=== PATIENT | male | born 1960 | race Two or more races ===

== ENCOUNTER 2025-02-03 23:07 | Inpatient (IN) | payer OTHER ==
[~2025-02-03] VITALS: Ht 175.3 cm; Wt 86.2 kg
[2025-02-03] MEDS ORDERED: ATORVASTATIN CA10 MG PO (23:30)
[2025-02-03] MEDS ORDERED: AMLODIPINE-OLM1 EAC2 PO (23:30)
--- NOTE | 2025-02-03 23:35 | NUR ---
PTE ALERTA Y ORIENTAD0 X3. PTE REFIERE QUE INGIRIO CAMARONES ESTA NOCHE Y A PRESENTADO VARIAS DIARREAS Y VOMITOS.
[2025-02-04] MEDS ORDERED: PROMETHAZINE HCL 50 MG/ML AMPUL IM STA (00:16)
[2025-02-04] MEDS ORDERED: FAMOTIDINE/PF 20 MG/2 ML VIAL IV PUSH STA (00:17)
[2025-02-04] MEDS ORDERED: LACTOBACILLUS ACIDOPHILUS 1 CAP CAP PO STA (00:17)
[2025-02-04] MEDS ORDERED: 0.9 % SODIUM CHLORIDE 1,000 ML IV ONE (00:30)
[2025-02-04] MEDS ORDERED: FAMOTIDINE/PF 20 MG/2 ML VIAL ONE ×2 (02:15→14:00)
[2025-02-04] MEDS ORDERED: PROMETHAZINE HCL 50 MG/ML AMPUL IM ONE (02:15)
[2025-02-04] MEDS ORDERED: LACTOBACILLUS ACIDOPHILUS 1 CAP CAP PO ONE (02:15)
[2025-02-04 02:25] LABS: BASO % 0.3 % (0.1-1.2); EOS # 0.00 (0.04-0.54); EOS % 0.0 % (0.7-7.0); LYMPH # 0.54 (1.18-3.74); LYMPH % 2.8 % (19.3-53.1); MEAN PLATELET VOLUME 9.10 fl (9.4-12.4); MONO # 1.37 (0.24-0.82); MONO % 7.1 % (4.7-12.5); NEUT # 17.27 (1.56-6.13); NEUT % 89.2 % (34.0-71.1); RED CELL DISTRIBUTION WIDTH 11.8 % (11.6-14.4)
--- NOTE | 2025-02-04 02:34 | NUR ---
SE ORIENTA PTE SOBRE TRATATMIENTO MEIDCO Y SE EJECUTA EN MALDONADO TOTALIDAD
[2025-02-04 02:42] LABS: URINE APPEARANCE Clear; URINE BILIRRUBIN Negative (NEGATIVE); URINE BLOOD Moderate; URINE COLOR Yellow; URINE GLUCOSE Negative (NEGATIVE); URINE KETONE Trace (NEGATIVE); URINE LEUKOCYTE Large; URINE NITRATE Negative; URINE PROTEIN Trace (NEGATIVE); URINE UROBILINOGEN 1.0 E.U./dl
[2025-02-04 02:45] LABS: URINE BACTERIA 2098.8 uL (0.0-1933); URINE RBC 124.9 uL (0.0-20.8); URINE WBC 1720.3 uL (0.0-23.2)
[2025-02-04 02:49] LABS: URINE CAST 0.14 uL (0.0-1.40); URINE EPITHELIAL CELLS 0.7 uL (0.0-38.8)
[2025-02-04 02:50] LABS: ALT/SGPT 29.0 U/L (12-78); AST/SGOT 15.0 U/L (15-37); BILIRUBIN TOTAL 1.52 mg/dL (0.3-1.2); BUN CREA RATIO 15.0 (7.0-25.0); CREATININE SERUM 1.24 mg/dL (0.70-1.30); GFR 58.33; GLOBULINA 2.7 G/DL (2.4-3.5); GLUCOSE FASTING 122.0 mg/dL (65-100); OSMOLALITY SERUM 279.0 MOSM/KG (275-295)
[2025-02-04] MEDS ORDERED: CIPROFLOXACIN IN 5 % DEXTROSE 400 MG/200 ML PIGGYBAG IV STA (04:17)
[2025-02-04] MEDS ORDERED: CIPROFLOXACIN IN 5 % DEXTROSE 400 MG/200 ML PIGGYBAG IV ONE (05:07)
[2025-02-04] MEDS ORDERED: FAMOTIDINE/PF 20 MG in 0.9 % SODIUM CHLORIDE 100 ML IV SCH (11:14)
[2025-02-04] MEDS ORDERED: MORPHINE SULFATE 2 MG/ML SYRINGE IV PRN (11:15)
[2025-02-04] MEDS ORDERED: ONDANSETRON HCL 4 MG in 0.9 % SODIUM CHLORIDE 50 ML IV PRN (11:15)
[2025-02-04] MEDS ORDERED: PIPERACILLIN/TAZOBACTAM SODIUM 3.375 GM in 0.9 % SODIUM CHLORIDE 100 ML IV SCH (12:00)
[2025-02-04] MEDS ORDERED: PIPERACILLIN/TAZOBACTAM SODIUM 3.375 GM VIAL IV ONE (14:00)
[2025-02-04] MEDS ORDERED: ACETAMINOPHEN 500 MG GEL..CAP PO ONE (14:28)
[2025-02-04 14:50] VITALS: BP 152/74
[2025-02-04 19:05] VITALS: BP 125/72; O2SAT 98
[2025-02-05 02:56] VITALS: BP 100/65; O2SAT 100
[2025-02-05 07:18] LABS: BASO % 0.3 % (0.1-1.2); EOS # 0.02 (0.04-0.54); EOS % 0.1 % (0.7-7.0); LYMPH # 1.13 (1.18-3.74); LYMPH % 6.9 % (19.3-53.1); MEAN PLATELET VOLUME 9.80 fl (9.4-12.4); MONO # 1.17 (0.24-0.82); MONO % 7.2 % (4.7-12.5); NEUT # 13.84 (1.56-6.13); NEUT % 84.7 % (34.0-71.1); RED CELL DISTRIBUTION WIDTH 12.1 % (11.6-14.4)
[2025-02-05 07:42] LABS: BUN CREA RATIO 11.0 (7.0-25.0); CREATININE SERUM 1.35 mg/dL (0.70-1.30); GFR 52.88; GLUCOSE FASTING 127.0 mg/dL (65-100); OSMOLALITY SERUM 287.0 MOSM/KG (275-295)
[2025-02-05] MEDS ORDERED: ATORVASTATIN CALCIUM 20 MG TABLET PO SCH (09:00)
[2025-02-05] MEDS ORDERED: IRBESARTAN 300 MG TABLET PO SCH (09:00)
[2025-02-05] MEDS ORDERED: AMLODIPINE BESYLATE 5 MG TABLET PO SCH (09:00)
[2025-02-05 09:40] VITALS: BP 108/61; O2SAT 96
[2025-02-05] MEDS ORDERED: PIPERACILLIN/TAZOBACTAM SODIUM 3.375 GM VIAL IV ONE (10:20)
[2025-02-05 18:07] VITALS: BP 147/78; O2SAT 96
[2025-02-06 02:27] VITALS: BP 106/60; O2SAT 98
[2025-02-06 07:52] LABS: BASO % 0.2 % (0.1-1.2); EOS # 0.00 (0.04-0.54); EOS % 0.0 % (0.7-7.0); LYMPH # 0.49 (1.18-3.74); LYMPH % 5.3 % (19.3-53.1); MEAN PLATELET VOLUME 9.70 fl (9.4-12.4); MONO # 0.77 (0.24-0.82); MONO % 8.3 % (4.7-12.5); NEUT # 7.94 (1.56-6.13); NEUT % 85.8 % (34.0-71.1); RED CELL DISTRIBUTION WIDTH 12.0 % (11.6-14.4)
[2025-02-06 08:41] LABS: ALT/SGPT 23.0 U/L (12-78); AST/SGOT 19.0 U/L (15-37); BILIRUBIN TOTAL 1.18 mg/dL (0.3-1.2); BUN CREA RATIO 12.0 (7.0-25.0); CREATININE SERUM 1.37 mg/dL (0.70-1.30); GFR 51.99; GLOBULINA 2.8 G/DL (2.4-3.5); GLUCOSE FASTING 117.0 mg/dL (65-100); LDH 181.0 U/L (87-241); OSMOLALITY SERUM 282.0 MOSM/KG (275-295)
[2025-02-06 09:14] LABS: PROSTATIC SPECIFIC ANTIGEN 56.8 NG/ML (0.010-4.00)
[2025-02-06 09:37] VITALS: BP 109/62; O2SAT 96
[2025-02-06] MEDS ORDERED: 0.9 % SODIUM CHLORIDE 1,000 ML IV SCH (14:45)
[2025-02-06 18:29] VITALS: BP 151/85; O2SAT 98
[2025-02-07 03:53] VITALS: BP 114/70; O2SAT 99
[2025-02-07] MEDS ORDERED: CIPROFLOXACIN IN 5 % DEXTROSE 400 MG/200 ML PIGGYBAG IV SCH (09:00)
== END 2025-02-07 10:38 | disposition home or self-care (01) | DRG 690 ==
LOC: ER 23:08 → SEC-K 02-04 11:30 → MEDJ 02-04 15:13
PROVIDERS: General Practice; Internal Medicine Infectious Disease; ADMIT Internal Medicine; ATTEND Internal Medicine
PROC: BW21ZZZ Computerized Tomography (CT Scan) of Abdomen and Pelvis (ICD-10-PCS; principal; 2025-02-04)
DX: N39.0 Urinary tract infection, site not specified (principal); B96.29 Other Escherichia coli [E. coli] as the cause of diseases classified elsewhere; I10 Essential (primary) hypertension; D72.828 Other elevated white blood cell count